=== PATIENT | female | born 1995 | race African-American/Black ===

== ENCOUNTER 2022-04-20 16:15 | Emergency (ER) | payer SELFPAY ==
--- NOTE | 2022-04-20 16:51 | EDPHYS ---
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 - Social history:: Smoking status: Patient denies any tobacco usage or history of. Patient uses alcohol, occasionally. Vital Signs: 16:24 BP 123 / 89; Pulse 86; Resp 18; Temp 98.7(TE); Pulse Ox 98% on R/A; Weight 88.45 kg; ld1 Height 5 ft. 5 in. (165.10 cm); Pain 0/10; 16:24 Body Mass Index 32.45 (88.45 kg, 165.10 cm) ld1 MDM: 16:25 Patient medically screened. kb 16:49 Data reviewed: vital signs, nurses notes. Data interpreted: Pulse oximetry: on room air kb is 98 %. Interpretation: normal. Counseling: I had a detailed discussion with the patient and/or guardian regarding: the historical points, exam findings, and any diagnostic results supporting the discharge/admit diagnosis, lab results, the need for outpatient follow up, a family practitioner, to return to the emergency department if symptoms worsen or persist or if there are any questions or concerns that arise at home. 04/20 16:25 Order name: Strep; Complete Time: 16:49 ld1 04/20 16:49 Order name: Throat Culture EDMS Administered Medications: No medications were administered Disposition Summary: 04/20/22 16:50 Discharge Ordered Location: Home kb Condition: Stable kb Diagnosis - Acute tonsillitis, unspecified kb Followup: kb - With: Emergency Department - When: As needed - Reason: Worsening of condition Followup: kb - With: Private Physician - When: 2 - 3 days - Reason: Recheck today's complaints, Continuance of care, Re-evaluation by your physician Discharge Instructions: - Discharge Summary Sheet kb - Tonsillitis, [id number] kb Forms: - Medication Reconciliation Form kb - Thank You Letter kb - Antibiotic Education kb - Prescription Opioid Use kb Prescriptions: - Augmentin 875-125 mg Oral Tablet - take 1 tablet by ORAL route every 12 hours for 10 days; 20 tablet; Refills: 0, kb Product Selection Permitted Signatures: Dispatcher [employer] EDRadha Mitchell, Ambreen Varghese, RN RN ld1
--- NOTE | 2022-04-20 16:51 | ER ---
Nurse's Notes [facility] Name: Deena Clark Age: 26 yrs Sex: Female : 1995 Arrival Date: 04/20/2022 Time: 16:18 Bed Waiting Private MD: Diagnosis: Acute tonsillitis, unspecified Presentation: 04/20 16:24 Chief complaint: Patient states: sore throat X 3 days. Pt reports puss pockets on back ld1 of throat. Coronavirus screen: At this time, the client does not indicate any symptoms associated with coronavirus-19. Ebola Screen: No symptoms or risks identified at this time. Initial Sepsis Screen: Does the patient meet any 2 criteria? No. Patient's initial sepsis screen is negative. Does the patient have a suspected source of infection? No. Patient's initial sepsis screen is negative. Risk Assessment: Do you want to hurt yourself or someone else? Patient reports no desire to harm self or others. Onset of symptoms was April 20, 2022. 16:24 Method Of Arrival: Ambulatory ld1 16:24 Acuity: ZURDO 4 ld1 Triage Assessment: 16:24 General: Appears in no apparent distress. comfortable, Behavior is calm, cooperative, ld1 appropriate for age. Pain: Denies pain. EENT: No signs and/or symptoms were reported regarding the EENT system. Neuro: Level of Consciousness is awake, alert, obeys commands, Oriented to person, place, time, situation. Cardiovascular: Capillary refill < 3 seconds Patient's skin is warm and dry. Respiratory: Airway is patent Respiratory effort is even, unlabored. GI: Abdomen is round non-distended. : No signs and/or symptoms were reported regarding the genitourinary system. Derm: No signs and/or symptoms reported regarding the dermatologic system. Musculoskeletal: No signs and/or symptoms reported regarding the musculoskeletal system. 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 - Social history:: Smoking status: Patient denies any tobacco usage or history of. Patient uses alcohol, occasionally. Vital Signs: 16:24 BP 123 / 89; Pulse 86; Resp 18; Temp 98.7(TE); Pulse Ox 98% on R/A; Weight 88.45 kg; ld1 Height 5 ft. 5 in. (165.10 cm); Pain 0/10; 16:24 Body Mass Index 32.45 (88.45 kg, 165.10 cm) ld1 ED Course: 16:18 Patient arrived in ED. rg4 16:19 Radha El FNP-C is [facility]. kb 16:19 Radu Grimm DO is Attending Physician. kb 16:24 Triage completed. ld1 16:24 Arm band placed on right wrist. ld1 16:32 Strep Sent. ld1 16:56 Evelyn Piedra, RN is Primary Nurse. iw Administered Medications: No medications were administered Outcome: 16:50 Discharge ordered by MD. kb 16:56 Discharged to home ambulatory. iw 16:56 Condition: good 16:56 Discharge instructions given to patient, Instructed on discharge instructions, follow up and referral plans. medication usage, Demonstrated understanding of instructions, follow-up care, medications, Prescriptions given X 1. 16:57 Patient left the ED. iw Signatures: Radha El FNP-C FNP-Evelyn Quispe, RN Maria Antonia Claire rg4 Ambreen Alba RN RN ld1
[2022-04-20 17:24] VITALS: BP 123/89; TEMP 98.7; O2SAT 98
== END 2022-04-20 16:57 | disposition home or self-care (01) ==
LOC: ER 16:15
DX: J03.90 Acute tonsillitis, unspecified (principal)
CPT/HCPCS: 87070; 87081